=== PATIENT | female | born 1970 | race Caucasian/White ===

== ENCOUNTER 2020-11-08 15:21 | Outpatient (REF) | payer MEDICAID, SELFPAY ==
--- NOTE | ~2020-11-08 | XR_ITS ---
EXAMINATION: XR PELVIS CLINICAL INFORMATION: Abnormal immunologic findings in serum. COMPARISON: None TECHNIQUE: AP view of the pelvis. FINDINGS: Mild asymmetric narrowing and subchondral sclerosis at the right sacral iliac joint with inferior marginal osteophytes, likely representing degenerative arthritis. Small right and left acetabular marginal osteophytes. No osseous erosion. Tiny pelvic phleboliths. XR/XR pelvis 1-2V IMPRESSION: Mild asymmetric degenerative arthritis within the right sacroiliac joint. Minimal right and left hip degenerative arthritis.
[2020-11-08 16:52] LABS: Basophils Percent Auto 0.5 % (0-2); Imm Gran Abs Auto 0.03 X10*3/uL (0.00-0.03); SCAN SMEAR FLAG 1
[2020-11-08 16:53] LABS: Eosinophils Absolute Auto 0.3 X10*3/uL (0.0-0.4); Eosinophils Percent Auto 2.9 % (0-4); Glucose Urine UA NEG (NEG); Hematocrit 37.1 % (37-47); Hemoglobin 11.3 g/dl (12.0-16.0); Imm Gran Pct Auto 0.3 % (0.0-0.4); Leukocyte Esterase Urine NEG (NEG); Lymphocytes Absolute Auto 1.9 X10*3/uL (1.2-4.9); Lymphocytes Percent Auto 22.2 % (20-40); Mean Corpuscular HGB Conc 30.5 g/dl (31.0-35.0); Mean Corpuscular Hemoglobin 25.7 pg (27.0-33.0); Mean Corpuscular Volume 84.3 fL (80-98); Monocytes Absolute Auto 0.6 X10*3/uL (0.1-1.2); Monocytes Percent Auto 7.5 % (2-11); Neutrophils Absolute Auto 5.7 X10*3/uL (2.0-8.3); Neutrophils Percent Auto 66.6 % (45-73); Nitrite Urine NEG (NEG); Platelet Count 239 X10*3/uL (160-400); Red Cell Distribution Width 13.5 % (11.0-16.0); Specific Gravity - Urine 1.025 (1.005-1.025); Urine Blood NEG (NEG); Urine Ketones NEG (NEG); Urine Protein TRACE MG/DL (NEG-TRACE); White Blood Count 8.6 X10*3/uL (4.8-10.8)
[2020-11-08 16:55] LABS: Appearance Urine HAZY; Color Urine YELLOW
[2020-11-08 16:57] LABS: PLT ABN DIST 1
[2020-11-08 16:58] LABS: MANUAL DIFF FLAG NO
[2020-11-08 17:12] LABS: Alanine Aminotransferase 18 U/L (0-31); Albumin Level 4.1 g/dL (3.5-5.0); Alkaline Phosphatase 84 U/L (39-117); Anion Gap 14 (12-20); Aspartate Amino Transferase 20 U/L (5-31); Bilirubin Total 0.5 mg/dL (0.0-1.0); Blood Urea Nitrogen 8 mg/dL (9-16); C Reactive Protein 1.81 mg/dL (< or = 0.50); Calcium 9.8 mg/dL (8.4-10.2); Carbon Dioxide 25 mmol/L (22-29); Chloride 103 mmol/L (96-108); Estimated Glomerular Filt Rate > 60; Glucose Random 139 mg/dL (60-115); Potassium 4.3 mmol/L (3.3-5.1); Sodium 138 mmol/L (135-145); Total Protein 7.8 g/dL (6.5-8.0)
[2020-11-08 17:26] LABS: Mucus Urine 2+ /LPF; RBC Urine 0-2 /HPF (0); Squamous Epithelial Cell Urine 2+ /LPF; WBC Urine 0-2 /HPF (0-4)
[2020-11-08 17:39] LABS: Erythrocyte Sedimentation Rate 44 MM/HR (0-20)
[2020-11-11 11:37] LABS: Complement C3 116 mg/dL (83-193)
[2020-11-14 07:36] LABS: Anti DNA DS Antibody 3 IU/mL
== END 2020-11-08 15:22 | disposition home or self-care (01) ==
LOC: HO.XRAY 15:21
PROVIDERS: PCP Nurse Practitioner Family; Visit Provider Student in an Organized Health Care Education/Training Program
DX: R76.8 Other specified abnormal immunological findings in serum (principal); M79.7 Fibromyalgia
CPT/HCPCS: 36415; 72170; 80053; 81001; 85025; 85652; 86140; 86160; 86225; 99212

== ENCOUNTER 2023-07-07 10:42 | Outpatient (AMB) | payer OTHER, SELFPAY ==
--- NOTE | 2023-07-07 10:57 | A.OFFVIS_ITS ---
Intake Vital Signs 07/07/23 10:59 Height 5 ft 4 in Weight 294 lb 5.074 oz BMI 50.5 BP 100/60 Blood Pressure Location Rt radial Position Sitting Pulse 62 Pulse Source Pulse Oximeter Temp 97.7 F Temp Source Skin Pulse Oximetry (%) 98 Oxygen Delivery Method Room Air Intake Visit Reasons: FM- saw Wm 10/2020 Intake Note: Patient last seen 11/08/20 by Wm, presents today for FM. Reports seeing Dr. Muniz in [place] after seeing us in 2020. Returning back to us due to drive. 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 Duque 53-year-old female returns to the office, after a long absence, for reevaluation. She continues to report diffuse arthralgias with pain in multiple joints as well in her soft tissue. She says that she is on Lyrica and Cymbalta with helps with the pain but she really wants to know what is causing her body so much. She notices that she is dropping things increasingly because her hands her especially her thumbs. In general, her story remains much the same as outlined in the history below. Last visit 11/08/2020 Dr. Burk: 50yoF presents for follow-up of a positive MARY. Last seen in July 2019. Reports diffuse arthralgia with pain in multiple joints as well as in her soft tissues. She reports pain that occurs on a daily basis and is worse with activity. Has difficulty sleeping and feels tired during the day. States she lost the orders for the pelvic x-ray that was ordered at the last visit. Never did physical therapy for her low back That was ordered after her initial visit. Initial history: Pt reports diffuse arthralgia that has been present for years and slowly worsening. Has some kind of pain daily but her constant pain is in her low back and R upper back under her shoulder blades. Her pain is worse in the morning. O ccasional morning stiffness in different joints, lasts less than 20 minutes. No joint swelling. Pain is worse with activity and only slightly better with rest. Pain is aching in nature, can get up to 10/10. Using Naproxen but states that it only helps a little. Was seen in the ER on May 12 for back pain, was given Toradol and Flexeril with some relief of her pain but it returned shortly afterwards. Pt denies Raynauds, photosensitivity, oral or nasal ulcers, Sicca symptoms. No history of miscarriages. No family history of RA or SLE. [facility] Medical History (Updated 07/08/23 @ 18:33 by KATERINA Alicea-STAR) Morbid obesity with BMI of 50.0-59.9, adult Osteoarthritis of first carpometacarpal joint of left hand Pain in finger of both hands Osteoarthritis of hands, bilateral SS-A antibody positive Surgical History (Updated 07/07/23 @ 11:02 by FRACISCO Greene) Hx of cholecystectomy Family History (Updated 07/07/23 @ 11:04 by FRACISCO Greene) Mother Arthritis Scoliosis Social History (Updated 07/07/23 @ 11:03 by FRACISCO Greene) Household Members: Children Alcohol intake: never Patient Tobacco Use Status: Never used Tobacco Current occupational status: unemployed Female Reproductive History Menstrual Total pregnancies: 2 Review of Systems Const All systems reviewed & are unremarkable except as noted in HPI and below Physical Exam Vital Signs: Last Vital Signs Temp 97.7 F 07/07/23 10:59 Pulse 62 07/07/23 10:59 BP 100/60 07/07/23 10:59 Pulse Ox 98 07/07/23 10:59 Oxygen Delivery Method Room Air 07/07/23 10:59 BMI result Body Mass Index 50.5 APPEARANCE: Patient in no acute distress, nourished, groomed EYES no redness, normal EARS:? External ear normal. NOSE/SINUS:? Airflow through both nares, no nasal discharge, no bleeding THROAT:? Oral mucosa moist, no ulcerations NECK:? No thyromegaly or masses, no adenopathy, trachea midline. HEART:? Regular rhythm, S1-S2 heard, no murmurs, rubs or gallops. LUNG:? Clear to percussion and auscultation EXTREMITIES:? No edema, no calf tenderness, normal peripheral pulses. NEURO:? Oriented and alert x3.? No focal weakness.? Reflexes symmetric.? Gait normal. SKIN:? There are no skin lesions evident. No objective signs of Raynaud's phenomenon. JOINT EXAM: Cervical Spine:.? Full range of motion without pain; mild tenderness to neck and shoulder areas Thoracic Spine:.? No scoliosis.? Mild tenderness on palpation. Lumbar Spine:.? Alignment normal.? Full range of motion without pain, [id number] tenderness. Chest Wall:.? No tenderness, swelling, increased warmth or erythema. Hands:.? Normal pain-free range of motion with generalized tenderness MCP, DIP and PIP, but no swelling, increased warmth or erythema. 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 Marked tenderness to bilateral CMC joint. Wrists:.? Normal pain-free range of motion without tenderness, swelling, increased warmth or erythema. Elbows:. Normal pain-free range of motion without tenderness, swelling, increased warmth or erythema. Shoulders:.?? Full range of motion with discomfort of stiffness. Mild tenderness to anterior joint line, but no weakness, swelling, increased warmth or erythema. Hip bursa:.? Ezda-vw-yiefdacj tenderness. Knees:.?? Normal pain-free range of motion without tenderness, swelling, increased warmth or erythema.? There is no effusion or crepitation Ankles:.? Normal pain-free range of motion with tenderness, but no swelling, increased warmth or erythema. Feet:.? Normal pain-free range of motion with tenderness, but no swelling, increased warmth or erythema. Tender points:? Tenderness to digital palpation at the occiput, trapezius, second rib, lateral epicondyle, knees, greater trochanter and gluteal area bilaterally. ? Office Procedures Joint Injection/Drain Joint Injection/Drain Details: left CMC Joint injection Primary Site: left thumb Prep: site was prepped using aseptic technique Injected: 20 mg of, Kenalog, with 0.5 mL of and 1% plain lidocaine Approach Used: other Procedure: The patient tolerated the procedure well Coding Details: left CMC Joint injection - Small Joint Procedure code (CPT) selection complete Results Reviewed Results Reviewed: Patient: Blakelisa DuqueBatsheva Lott MR#: [id number] : 1970 Acct:[id number] Age/Sex: 50 / F ADM Date: 11/08/[address]: Courtney Burk MD Ordering Physician: Courtney Burk MD Date of Service: 11/08/20 Procedure(s): XR pelvis 1-2V Accession Number(s): [id number] cc: Courtney Burk MD~ EXAMINATION: XR PELVIS CLINICAL INFORMATION: Abnormal immunologic findings in serum. COMPARISON: None TECHNIQUE: AP view of the pelvis. FINDINGS: Mild asymmetric narrowing and subchondral sclerosis at the right sacral iliac joint with inferior marginal osteophytes, likely representing degenerative arthritis. Small right and left acetabular marginal osteophytes. No osseous erosion. Tiny pelvic phleboliths. XR/XR pelvis 1-2V IMPRESSION: Mild asymmetric degenerative arthritis within the right sacroiliac joint. Minimal right and left hip degenerative arthritis. Assessment & Plan Assessment & Plan (1) SS-A antibody positive: Code(s): R76.8 - Other specified abnormal immunological findings in serum (2) MARY positive: Code(s): R76.8 - Other specified abnormal immunological findings in serum (3) Osteoarthritis of hands, bilateral: Code(s): M19.041 - Primary osteoarthritis, right hand; M19.042 - Primary osteoarthritis, left hand (4) Morbid obesity with BMI of 50.0-59.9, adult: Code(s): E66.01 - Morbid (severe) obesity due to excess calories; Z68.43 - Body mass index [BMI] 50.0-59.9, adult Plan #Polyarthralgia: The patient is here for reevalution and I think there is enough in her history and current symptoms that favors the clinical presentation of osteoarthritis with an underlying inflammatory arthritis. Her initial workup in 2019 had positive MARY 1:160, positive SSA 5.1, elevated sed rate at 54 and CRP 2.9 along with elevated liver. The CCP, rheumatoid factor and lupus markers were negative and so were her thyroid antibodies. Pelvic X-ray done in 2020 showed OA and sclerosis to the SI joint. Over the years she continues to describe intermittent swelling and redness and tenderness to her fingers and ankle and an all intervals her ESR and CRP remain elevated. She does have morbid obesity and is diabetic which which are stresses cause elevated ESR and CRP. Today her left thumb is very painful and tender and I think it is reasonable to give an injection which she tolerated well. I will obtain updated labs and x-rays and reassess the patient for an inflammatory arthritis. She is diabetic and has morbid obesity so we will be judicious in the use of prednisone. She is trying to lose weight and is admitted in the bariatric surgery program which I think would be very beneficial for her joints. I spent 50 minutes reviewing history evaluating patient and documenting Follow-up in 3 months or sooner if Orders: Orders Anti Extractable Nuclear Ag 07/07/23 R76.8 - Other specified abnormal immunological findings in serum Anti DNA DS Antibody 07/07/23 R76.8 - Other specified abnormal immunological findings in serum Comprehensive Met. Panel 07/07/23 R76.8 - Other specified abnormal immunological findings in serum C Reactive Protein 07/07/23 R76.8 - Other specified abnormal immunological findings in serum Erythrocyte Sedimentation Rate 07/07/23 R76.8 - Other specified abnormal immunological findings in serum T Spot TB 07/07/23 R76.8 - Other specified abnormal immunological findings in serum Immunoglobulins,IgG IgA IgM 07/07/23 R76.8 - Other specified abnormal immunological findings in serum Hepatitis A,B,C Profile 07/07/23 R76.8 - Other specified abnormal immunological findings in serum Vitamin D 25-OH (D2 and D3) 07/07/23 R76.8 - Other specified abnormal immunological findings in serum XR hand RT min 3V 07/07/23 M19.041 - Primary osteoarthritis, right hand, M19.042 - Primary osteoarthritis, left hand, M79.644 - Pain in right finger(s), M79.645 - Pain in left finger(s) AMB Joint Injection/Aspiration 07/07/23 M18.12 - Unilateral primary osteoarthritis of first carpometacarpal joint, left hand MARY Reflex Titer and Pattern 07/07/23 R76.8 - Other specified abnormal immunological findings in serum Sjogren's Antibodies 07/07/23 R76.8 - Other specified abnormal immunological findings in serum Complete Blood Count Auto Diff 07/07/23 R76.8 - Other specified abnormal immunological findings in serum Creatine Kinase Total 07/07/23 R76.8 - Other specified abnormal immunological findings in serum Uric Acid 07/07/23 R76.8 - Other specified abnormal immunological findings in serum XR hand LT min 3V 07/07/23 M19.041 - Primary osteoarthritis, right hand, M19.042 - Primary osteoarthritis, left hand, M79.644 - Pain in right finger(s), M79.645 - Pain in left finger(s) Coding Level of Care Code New Pt Level 4 (50678) Diagnoses SS-A antibody positive R76.8 MARY positive R76.8 Osteoarthritis of hands, bilateral M19.041; M19.042 Morbid obesity with BMI of 50.0-59.9, adult E66.01; Z68.43 CPT Codes Coding - - Small joint: - Small Joint ([id number])
[2023-07-07 10:59] VITALS: BP 100/60; PULSE 62; TEMP 36.5; O2SAT 98; BMI 50.5
== END 2023-07-07 11:59 | disposition home or self-care (01) ==
PROVIDERS: PCP Nurse Practitioner Family; Visit Provider Nurse Practitioner Family
DX: M13.0 Polyarthritis, unspecified (principal); M79.7 Fibromyalgia; R76.8 Other specified abnormal immunological findings in serum
CPT/HCPCS: 20600; 99204

== ENCOUNTER 2023-07-07 10:42 | Outpatient (REF) | payer MEDICAID, SELFPAY ==
--- NOTE | ~2023-07-07 | XR_ITS ---
EXAMINATION: XR HAND, RIGHT CLINICAL INFORMATION: Primary osteoarthritis, right hand COMPARISON: None available. TECHNIQUE: PA, lateral, and oblique views of the right hand. FINDINGS: The bones are intact. No fracture. Positive ulnar variant. Joint spaces are maintained. No erosions or soft tissue calcifications. XR/XR hand RT min 3V IMPRESSION: 1. No acute bony abnormality. 2. Positive ulnar variant.
--- NOTE | ~2023-07-07 | XR_ITS ---
EXAMINATION: XR HAND, LEFT CLINICAL INFORMATION: Primary osteoarthritis, right hand COMPARISON: None available. TECHNIQUE: PA, lateral, and oblique views of the left hand. FINDINGS: The bones are intact. No acute fracture. Small calcific or ossific density adjacent to the ulnar styloid may be related to old fracture or represents an ununited ossification center. Positive ulnar variance. Joint spaces are maintained. No erosions or soft tissue calcifications. XR/XR hand LT min 3V IMPRESSION: 1. No acute bony abnormality. 2. Positive ulnar variance.
[2023-07-07 12:28] LABS: MANUAL DIFF FLAG NO
[2023-07-07 12:36] LABS: Basophils Absolute Auto 0.1 X10*3/uL (0.0-0.2); Basophils Percent Auto 0.6 % (0-2); Eosinophils Absolute Auto 0.2 X10*3/uL (0.0-0.4); Eosinophils Percent Auto 2.4 % (0-4); Hematocrit 38.7 % (37.0-47.0); Imm Gran Abs Auto 0.03 X10*3/uL (0.00-0.03); Imm Gran Pct Auto 0.4 % (0.0-0.4); Lymphocytes Absolute Auto 2.1 X10*3/uL (1.2-4.9); Lymphocytes Percent Auto 24.9 % (20-40); Mean Corpuscular Hemoglobin 26.4 pg (27.0-33.0); Mean Corpuscular Volume 85.2 fL (80.0-98.0); Mean Platelet Volume 12.5 fL (9.4-12.3); Monocytes Absolute Auto 0.6 X10*3/uL (0.1-1.2); Monocytes Percent Auto 7.4 % (2-11); Neutrophils Absolute Auto 5.4 x10*3/uL (2.0-8.3); Neutrophils Percent Auto 64.3 % (45-73); Platelet Count 240 X10*3/uL (160-400); Red Blood Count 4.54 X10*6/uL (4.20-5.50); Red Cell Distribution Width 13.4 % (11.0-16.0); White Blood Count 8.4 X10*3/uL (4.8-10.8)
[2023-07-07 13:14] LABS: Erythrocyte Sedimentation Rate 38 MM/HR (0-20)
[2023-07-07 13:46] LABS: Alanine Aminotransferase 24 U/L (0-31); Alkaline Phosphatase 93 U/L (39-117); Anion Gap 12 (12-20); Aspartate Amino Transferase 34 U/L (5-31); Bilirubin Total 0.4 mg/dL (0.0-1.0); Blood Urea Nitrogen 12 mg/dL (9-16); C Reactive Protein 1.19 mg/dL (< or = 0.50); Calcium 9.3 mg/dL (8.4-10.2); Carbon Dioxide 25 mmol/L (22-29); Chloride 105 mmol/L (96-108); Estimated Glomerular Filt Rate > 60; Glucose Random 166 mg/dL (60-115); Potassium 4.1 mmol/L (3.3-5.1); Sodium 138 mmol/L (135-145); Total Protein 8.1 g/dL (6.5-8.0); Uric Acid 3.8 mg/dL (2.4-5.7)
[2023-07-08 08:54] LABS: HBS Num1 2.36 mIU/mL (0-7.99); HBc Num1 0.14 S/CO (0.00-0.79); HBsAGNum1 0.35 S/CO (0.00-0.99); Hepatitis A Antibody IgM 0.14 Index (0-0.79); Hepatitis B Core Antibody Nonreactive (Nonreactive); Hepatitis B Surface Antigen Negative (Negative); ~HepC Num1 0.15 S/CO (0.00-0.79); ~Hepatitis A Antibody IgM Nonreactive (Nonreactive); ~Hepatitis B Surface Antibody NONREACTIVE (Nonreactive); ~Hepatitis C Antibody Nonreactive (Nonreactive)
[2023-07-08 12:52] LABS: Anti DNA DS Antibody 2 IU/mL; Antibody to SS-A Antigen 2.6 POS AI (<1.0 NEG); Antibody to SS-B Antigen <1.0 NEG AI (<1.0 NEG); SM/Ribonucleoprotein Ab <1.0 NEG AI (<1.0 NEG); Smith Protein <1.0 NEG AI (<1.0 NEG)
[2023-07-08 17:04] LABS: IgA 600 mg/dL (47-310); IgG 1412 mg/dL (600-1640); IgM 165 mg/dL (50-300)
[2023-07-10 13:23] LABS: TS Negative Control Passed; TS Panel A 0; TS Panel B 0; TS Positive Control Passed; TSpotTB Negative (Negative)
[2023-07-11 13:49] LABS: Anti Nuclear Antibody Screen NEGATIVE (NEGATIVE)
[2023-07-12 15:13] LABS: Vitamin D 25-OH, D2 <4 ng/mL; Vitamin D 25-OH, D3 30 ng/mL; Vitamin D 25-OH, Total 30 ng/mL (30-100)
== END 2023-07-07 10:43 | disposition home or self-care (01) ==
LOC: HO.LAB 10:42
PROVIDERS: PCP Nurse Practitioner Family; Visit Provider Nurse Practitioner Family
DX: M79.645 Pain in left finger(s) (principal); M79.644 Pain in right finger(s); M19.041 Primary osteoarthritis, right hand; M19.042 Primary osteoarthritis, left hand; R76.8 Other specified abnormal immunological findings in serum; E66.01 Morbid (severe) obesity due to excess calories; Z68.43 Body mass index [BMI] 50.0-59.9, adult; Z79.899 Other long term (current) drug therapy
CPT/HCPCS: 20600; 36415; 73130; 80053; 82306; 82550; 82784; 84550; 85025; 85652; 86038; 86140; 86225; 86235; 86481; 86704; 86706; 86709; 86803; 87340